=== PATIENT | female | born 1985 | race Caucasian/White ===

== ENCOUNTER 2018-02-07 06:57 | Day surgery (SDC) | payer BC ==
[~2018-02-07 06:57] MED LIST: Lactated Ringers 1,000 ML IV SCH; Lidocaine 1%/Sod Bicarbonate in NS 8.4% 1 ML Syringe IDERM PRN; Sodium Chloride 0.9% 10 ML Syringe FLUSH PRN
[2018-02-07] MEDS ORDERED: Bupivacaine 0.5% 30 ML SDV ONE (07:22)
--- NOTE | 2018-02-07 07:29 | PCM.PREANE ---
Preanesthetic Assessment - Procedure Proposed Procedure: Diagnositic Laparoscopy - Anesthesia/Transfusion/Family Hx Anesthesia History: No Prior Anesthesia Family History of Anesthesia Reaction: No Transfusion History: No Prior Transfusion(s) Intubation History: Unknown - Review of Systems General: No Symptoms Pulmonary: No Symptoms Gastrointestinal: No Symptoms Neurological: No Symptoms Other: Reports: None - Physical Assessment NPO Status Date: 02/06/18 NPO Status Time: 23:00 Pulse: 80 O2 Sat by Pulse Oximetry: 98 Respiratory Rate: 16 Blood Pressure: 109/79 Temperature: 36.6 C Height: 1.78 m Weight: 99.798 kg ASA Class: 2 Mental Status: Alert & Oriented x3 Airway Class: Mallampati = 3 Dentition: Reports: Normal Dentition Thyro-Mental Finger Breadths: 3 Mouth Opening Finger Breadths: 5 ROM/Head Extension: Full Lungs: Clear to Auscultation, Normal Respiratory Effort Cardiovascular: Regular Rate, Regular Rhythm - Lab Values: Laboratory Last Values WBC 10.13 K/mm3 (3.98-10.04) H 02/06/18 11:45 RBC 4.99 M/mm3 (3.98-5.22) 02/06/18 11:45 Hgb 14.3 gm/L (11.2-15.7) 02/06/18 11:45 Hct 42.8 % (34.1-44.9) 02/06/18 11:45 MCV 85.8 fl (79.4-94.8) 02/06/18 11:45 MCH 28.7 pg (25.6-32.2) 02/06/18 11:45 MCHC 33.4 g/dl (32.2-35.5) 02/06/18 11:45 RDW Std Deviation 41.2 fL (36.4-46.3) 02/06/18 11:45 Plt Count 263 K/mm3 (182-369) 02/06/18 11:45 MPV 10.3 fl (9.4-12.3) 02/06/18 11:45 Neut % (Auto) 63.5 % (34.0-71.1) 02/06/18 11:45 Lymph % (Auto) 23.4 % (19.3-51.7) 02/06/18 11:45 Young % (Auto) 6.7 % (4.7-12.5) 02/06/18 11:45 Eos % (Auto) 5.6 (0.7-5.8) 02/06/18 11:45 Baso % (Auto) 0.5 % (0.1-1.2) 02/06/18 11:45 Neut # (Auto) 6.43 K/mm3 (1.56-6.13) H 02/06/18 11:45 Lymph # (Auto) 2.37 K/mm3 (1.18-3.74) 02/06/18 11:45 Young # (Auto) 0.68 K/mm3 (0.24-0.36) H 02/06/18 11:45 Eos # (Auto) 0.57 K/mm3 (0.04-0.36) H 02/06/18 11:45 Baso # (Auto) 0.05 K/mm3 (0.01-0.08) 02/06/18 11:45 Urine Color Yellow (Yellow) 02/06/18 11:45 Urine Appearance Slt cloudy (Clear) H 02/06/18 11:45 Urine pH 7.5 (5.0-8.0) 02/06/18 11:45 Ur Specific [place] 1.020 (1.005-1.030) 02/06/18 11:45 Urine Protein Trace (Negative) H 02/06/18 11:45 Urine Glucose (UA) Negative (Negative) 02/06/18 11:45 Urine Ketones Negative (Negative) 02/06/18 11:45 Urine Occult Blood Negative (Negative) 02/06/18 11:45 Urine Nitrite Negative (Negative) 02/06/18 11:45 Urine Bilirubin Negative (Negative) 02/06/18 11:45 Urine Urobilinogen 0.2 (0.2-1.0) 02/06/18 11:45 Ur Leukocyte Esterase Negative (Negative) 02/06/18 11:45 Urine RBC 0-5 /hpf (0-5) 02/06/18 11:45 Urine WBC 0-5 /hpf (0-5) 02/06/18 11:45 Ur Epithelial Cells 0-5 /hpf (0-5) 02/06/18 11:45 Urine Bacteria Moderate /hpf (FEW) H 02/06/18 11:45 Urine Mucus Few /hpf (FEW) 02/06/18 11:45 - Allergies Allergies/Adverse Reactions: Allergies Allergy/AdvReac Type Severity Reaction Status Date / Time acetaminophen [From Percocet] Allergy Rash Verified 08/19/16 16:30 ketorolac [From Toradol] Allergy Rash Verified 08/19/16 16:30 oxycodone [From Percocet] Allergy Rash Verified 08/19/16 16:30 tramadol Allergy Rash Verified 08/19/16 16:30 - Blood Blood Available: No - Anesthesia Plan Pre-Op Medication Ordered: None - Acknowledgements Anesthesia Type Planned: General Anesthesia, MAC Pt an Appropriate Candidate for the Planned Anesthesia: Yes Alternatives and Risks of Anesthesia Discussed w Pt/Guardian: Yes Pt/Guardian Understands and Agrees with Anesthesia Plan: Yes PreAnesthesia Questionnaire HEENT History: Reports: None Cardiovascular History: Reports: None Respiratory History: Reports: None Gastrointestinal History: Reports: None Genitourinary History: Reports: Renal Calculus Musculoskeletal History: Reports: Back Pain, Chronic Psychiatric History: Reports: Other (See Below) Other Psychiatric History: fatigue Endocrine/Metabolic History: Reports: None - Past Surgical History GI Surgical History: Reports: Appendectomy Other Female Surgeries/Procedures: dysmenorrhea, menorrhagia, ovarian lesion , laparoscopy to drain ovarian cyst - HOME MEDS Home Medications: Home Meds Multivitamin [Daily Lupillo] 1 tab PO DAILY 08/19/16 [History] Acetaminophen/oxyCODONE [Percocet 325-5 MG] 2 tab PO Q4H PRN #30 tablet [Rx] Ibuprofen [IJD: Ibuprofen] 600 mg PO Q4H PRN #30 tablet 08/20/16 [Rx] - CURRENT (IN HOUSE) MEDS Current Meds: Current Medications Lactated Ringer's (Ringers, Lactated) 1,000 mls @ 125 mls/hr IV ASDIRECTED AMADA Stop: 02/07/18 23:00 Lidocaine/Sodium Bicarbonate (Buffered Lidocaine 1% In Ns 8.4%) 0.25 ml IDERM ONETIME PRN PRN Reason: Prior to IV Start Stop: 02/07/18 18:00 Sodium Chloride (Saline Flush) 10 ml FLUSH ASDIRECTED PRN PRN Reason: Keep Vein Open Stop: 02/07/18 18:00
[2018-02-07] MEDS ORDERED: Propofol 200 MG/20 ML SDV ONE (07:33)
[2018-02-07] MEDS ORDERED: Midazolam 1 MG/ML 2 ML SDV ONE (07:33)
[2018-02-07] MEDS ORDERED: fentaNYL 250 MCG/5 ML SDV ONE (07:33)
[2018-02-07] MEDS ORDERED: ceFAZolin 1 GM Vial ONE (07:36)
[2018-02-07] MEDS ORDERED: Rocuronium 50 MG/5 ML Vial ONE (07:41)
[2018-02-07] MEDS ORDERED: Lidocaine 1% 4 ML ONE (07:42)
[2018-02-07] MEDS ORDERED: Dexamethasone 4 MG/ML 5 ML MDV ONE (08:00)
[2018-02-07] MEDS ORDERED: Ondansetron 4 MG/2 ML SDV ONE (08:00)
[2018-02-07] MEDS ORDERED: Ketorolac 30 MG/ML SDV ONE (08:37)
[2018-02-07] MEDS ORDERED: Ondansetron 4 MG/2 ML SDV IVPUSH PRN ×2 (08:49→08:58)
[2018-02-07] MEDS ORDERED: HYDROmorphone 0.5 MG/0.5 ML Syringe IVPUSH PRN (08:58)
[2018-02-07] MEDS ORDERED: fentaNYL 100 MCG/2 ML SDV IVPUSH PRN (08:58)
[2018-02-07] MEDS ORDERED: diphenhydrAMINE 50 MG/ML SDV IVPUSH PRN (08:58)
--- NOTE | 2018-02-07 08:58 | PCM.OPNOTE ---
- General Post-Op/Procedure Note Date of Surgery/Procedure: 02/07/18 Operative Procedure(s): Laparoscopy with biopsy of pelvic peritoneum and lysis of pelvic adhesions Findings: Adhesion band between bowel and right ovary, small adhesion on underside of left ovary. Patient had a hemosiderin urine spot left pelvis in the area of the left vaginal cuff. Both ovaries were within normal limits and functional in appearance. Right ovary appeared to just ovulated. Appendix was Surgically absent. Liver edge and gallbladder within normal limits. Pre Op Diagnosis: Left lower quadrant pelvic pain Post-Op Diagnosis: Same adhesions and left pelvic hemosiderin deposit. Anesthesia Technique: General ET Tube Other Anesthesia Type: Marcaine 0.5%local Primary Surgeon: Bud Saunders Secondary Surgeon: Luis Fajardo Anesthesia Provider: Yeni Garza Park Interpretive Specialist: Angeli De Role of Park Interpretive Specialist: Retraction, assistance, quality of care, patient safety Pathology: Biopsy of left pelvic peritoneum Fluid Replacement, Intraop: 1,000 EBL in mLs: 5 Drain/Tube Comments:: Indwelling bladder catheter during surgery only. Complications: None Condition: Good Free Text/Narrative:: Surgery duration: 18 minutes Procedure: The patient was taken to the operating room and placed in supine position on the operative table. She had sequential compression stockings in place for DVT prophylaxis and had been given 2 g of Ancef IV for infection prophylaxis. She was administered general endotracheal anesthesia. After administration of anesthesia the patient was placed in dorsal lithotomy position and prepped and draped in usual fashion. An indwelling bladder catheter was placed as was a uterine manipulator. It should be noted the uterus and cervix were surgically absent. Exam under anesthesia was performed. A sponge stick was placed in the vagina being the case Infraumbilical incision site and suprapubic site were then infiltrated with approximately 3-4 mL of Marcaine 0.5%. 5 mm incisions were made in these areas. Varies needle was placed in the infraumbilical incision site and pneumoperitoneum was established was in 3 L of CO2. The laparoscopic sleeve was then placed as was the scope. Under direct visualization the suprapubic site was developed with a 5 mm port. Pelvis was evaluated findings as above. Eventually a right lateral port was established using routine protocol with Marcaine as anesthetic. Findings include adhesions involving right and left ovary with right side greater than left. Also mulberry colored lesions present in the left vaginal cuff area these were biopsied and then cauterized with Enseal cautery device. The ovaries appeared functional and without lesions otherwise. Anatomy otherwise was unremarkable. After biopsy and cauterization was performed the pneumoperitoneum was reversed, The lower sleeve and right lateral sleeve having been removed under direct visualization. The upper port was removed and the incisions were closed with single subcuticular interrupted suture of 3-0 Monocryl. The incisions were further approximated with Dermabond skin glue. The Falk catheter removed. Sponge stick was removed without problems. Patient was returned to the supine position and awakened from general endotracheal anesthesia. She left the operating room in good condition.
[2018-02-07] MEDS ORDERED: Neostigmine Methylsulfate 1 MG/ML 5 ML Syringe ONE (12:01)
[2018-02-07] MEDS ORDERED: Lactated Ringers 1,000 ML ONE (12:02)
[2018-02-07 13:53] VITALS: BP 109/79
--- NOTE | 2018-02-07 13:53 | PCM48HPAN ---
Post Anesthesia Note - EVALUATION WITHIN 48HRS OF ANESTHETIC Vital Signs in Normal Range: Yes Patient Participated in Evaluation: Yes Respiratory Function Stable: Yes Airway Patent: Yes Cardiovascular Function Stable: Yes Hydration Status Stable: Yes Pain Control Satisfactory: Yes Nausea and Vomiting Control Satisfactory: Yes Mental Status Recovered: Yes Pulse Rate: 80 Resp Rate: 16 Temperature: 36.6 C Blood Pressure: 109/79
== END 2018-02-07 10:55 | disposition home or self-care (01) ==
LOC: JD.SDS 06:57
PROVIDERS: ATTEND Obstetrics & Gynecology
DX: N73.6 Female pelvic peritoneal adhesions (postinfective) (principal); Z80.41 Family history of malignant neoplasm of ovary; Z88.5 Allergy status to narcotic agent; Z88.6 Allergy status to analgesic agent
CPT/HCPCS: 36415; 58662; 81001; 85025; J0690; J1100; J1170; J1200; J1885; J2001; J2250; J2405; J3010; J7120; J2704; J2710

== ENCOUNTER 2025-04-17 16:39 | Emergency (ER) | payer BC ==
[2025-04-17 16:52] VITALS: BP 120/92; PULSE 94
[2025-04-17 17:04] LABS: BASOPHILS ABSOLUTE AUTO 0.1 K/mm3 (0.0-0.2); BASOPHILS PERCENT AUTO 0.7 % (0.0-1.0); EOSINOPHILS ABSOLUTE AUTO 0.3 K/mm3 (0.0-0.4); EOSINOPHILS PERCENT AUTO 3.0 % (0.0-6.0); IMMATURE GRAN ABSOLUTE AUTO 0.03 K/mm3 (0.00-0.05); IMMATURE GRAN PERCENT AUTO 0.3 % (0.0-0.4); LYMPHOCYTES ABSOLUTE AUTO 3.2 K/mm3 (1.0-4.8); LYMPHOCYTES PERCENT AUTO 32.8 % (24.0-44.0); MEAN PLATELET VOLUME 9.6 fl (9.4-12.3); MONOCYTES ABSOLUTE AUTO 0.8 K/mm3 (0.0-0.8); MONOCYTES PERCENT AUTO 8.5 % (0.0-8.0); NEUTROPHILS ABSOLUTE AUTO 5.4 K/mm3 (1.8-7.7); NEUTROPHILS PERCENT AUTO 54.7 % (41.0-71.0); NRBC ABSOLUTE 0.00 (0.00-0.02); NRBC PERCENT 0.0 % (0.0-0.2); PLATELET COUNT,PLT 291 K/mm3 (150-400); RED BLOOD CELL COUNT 4.86 M/mm3 (4.10-5.30); WHITE BLOOD CELL COUNT,WBC 9.78 K/mm3 (3.9-11.3)
[2025-04-17 17:26] LABS: A/G RATIO 1.3 (1-2); ALANINE AMINOTRANSFERASE,ALT 40.0 U/L (14-59); ASPARTATE AMNIOTRANSFERASE,AST 27.0 U/L (15-37); BILIRUBIN TOTAL 0.8 mg/dL (0.2-1.0); BLOOD UREA NITROGEN,BUN 14.0 mg/dL (7-18); CARBON DIOXIDE,CO2 29.0 mEq/L (21-32); CHLORIDE,CL 103.0 mEq/L (98-107); CREATININE 0.9 mg/dL (0.55-1.02); EST CRCL DRUG DOSING (CG) 85.1 mL/min; ESTIMATED GFR 82.0 mL/min (>60); GLUCOSE RANDOM 89.0 mg/dL (70-99); POTASSIUM,K 4.2 mEq/L (3.5-5.1); PROTEIN TOTAL,TP 7.2 g/dl (6.4-8.2); SODIUM,NA 140.0 mEq/L (136-145); TROPONIN I HIGH SENSITIVITY 5.0 pg/mL (<=51)
== END 2025-04-17 19:44 | disposition home or self-care (01) ==
LOC: JD.ED 16:39
DX: R07.89 Other chest pain (principal); Z88.8 Allergy status to other drugs, medicaments and biological substances; Z79.899 Other long term (current) drug therapy; Z90.49 Acquired absence of other specified parts of digestive tract
CPT/HCPCS: 36415; 71046; 80053; 84484; 85025; 85379; 86140; 93005; 99285; A9270; 93010; 99283